=== PATIENT | female | born 2000 | race Caucasian/White ===

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

== ENCOUNTER 2021-03-29 13:24 | Outpatient (CLI) | payer OTHER, SELFPAY ==
--- NOTE | ~2021-03-29 | US_ITS ---
US thyroid INDICATION: Nontoxic goiter TECHNIQUE: Real-time sonographic images of the thyroid gland were obtained. COMPARISON: No prior studies for comparison. FINDINGS: The right thyroid lobe measures 5 x 1.2 x 1.4 cm. The left thyroid lobe measures 5 x 0.9 x 1.4 cm. There is normal echotexture and echogenicity throughout the thyroid gland. Thyroid gland is heterogeneous bilaterally with multiple cystic and mixed solid and cystic masses, largest on the righ t measuring 7 mm and largest on the left measuring 5 mm. No suspicious masses are identified to sugge st malignancy. Normal vascular flow is present. IMPRESSION: 1. Mildly enlarged thyroid gland containing multiple benign-appearing bilateral thyroid nodules whic h are cystic or mixed solid and cystic, largest in the right lobe measuring 7 mm. Reviewed, dictated and finalized at location A. [employer]T ASSOCIATE IMPRESSION: 1. Mildly enlarged thyroid gland containing multiple benign-appearing bilatera l thyroid nodules which are cystic or mixed solid and cystic, largest in the ri ght lobe measuring 7 mm.
== END 2021-03-29 13:25 | disposition home or self-care (01) ==
LOC: ANHIMG 13:28
PROVIDERS: PCP Family Medicine; Visit Provider Family Medicine
DX: E04.9 Nontoxic goiter, unspecified (principal)
CPT/HCPCS: 76536